=== PATIENT | male | born 1970 | race Caucasian/White ===

== ENCOUNTER 2016-10-22 05:17 | Inpatient (IN) | payer MEDICAID ==
[~2016-10-22] VITALS: Ht 182.9 cm; Wt 73.9 kg
[2016-10-22] VITALS (10 sets, daily range): BP systolic 117–142; BP diastolic 78–98; BMI 22.1
[~2016-10-22 05:17] MED LIST: AMOX-CLAV; FLAGYL500 MG PO; HYDROCODON-ACE1 EAC7 PO; IMODIUM2 MG PO; KEFLEX500 MG PO; OXYCODONE HCL5 MG PO; PROTONIX40 MG PO
--- NOTE | 2016-10-22 13:35 | NUR ---
RECEIVED TO ROOM 2238 FROM RECOVERY AT THIS TIME. INCISION X7 WITH BANDAGES C/D/I. ALERT AND ORIENTED. SCD'S ON AND IN WORKING ORDER. IV PATENT. LEA PATENT AND DRAINING TO GRAVITY. ASSESSMENT PERFORMED AND VITAL SIGNS INITIATED PER POST PROCEDURE PROTOCOL. CALL LIGHT IN REACH, BED ALARM ON. SR X2 AND BED IN LOWEST POSITION AND LOCKED. WILL CONTINUE WITH PLAN OF CARE.
--- NOTE | 2016-10-22 14:20 | NUR ---
DILAUDID TOW MOTOR OPERATOR INITIATED AT THIS TIME MORPHINE TOW MOTOR OPERATOR CAUSED PT TO ITCH. INCENTIVE SPIROMETER IN USE WITH 3,500 ML OF INSPIRATORY VOLUME. LEA CATHETER CARE PROVIDED WITH CATHETER CARE WIPES. VITAL SIGNS REMAIN STABLE. IV TO RIGHT HAND PATENT. MOTHER AT BEDSIDE. SCD'S ON AND IN WORKING ORDER. WILL CONTINUE WITH PLAN OF CARE.
--- NOTE | 2016-10-22 16:15 | NUR ---
DRESSING TO RLQ AND LLQ OF ABDOMEN MINIMALLY BLOODY. REINFORCED BOTH SITED WITH GAUZE AND METIPORE TAPE. LOOPING MACHINE OPERATOR IN USE FOR PAIN. PAIN RATED 6/10 INCISIONALLY AT THIS TIME. LEA PATENT AND DRAINING TO GRAVITY. PT SELF POSITIONS FOR COMFORT AND IS TOLERATING ICE CHIPS WITHOUT NAUSEA OR VOMITING. VITAL SIGNS REMAIN STABLE. INCENTIVE SPIROMETER IN USE. CALL LIGHT IN REACH, WILL CONTINUE WITH PLAN OF CARE.
--- NOTE | 2016-10-22 19:00 | NUR ---
BEDSIDE REPORT RECEIVED AND CARE OF PT ASSUMED. PT LYING IN SUPINE POSITION WATCHING TV. IV IN RIGHT HAND PATENT WITH D5 1/2 HS INFUSING AT 125 ML / HR. CASINO FLOORPERSON / DILAUDID IN USE FOR PAIN CONTROL. LEA CATHETER DRAINING TO GRAVITY WITH YELLOW URINE IN COLLECTION BAG. X7 DRESSINGS INTACT. ONE ON RIGHT SIDE WITH 3 INCH DAMIÁN DRAINAGE STAIN MARKED WITH MARKER TO GUAGE IF STILL DRAINING. WILL MONITOR CLOSELY FOR NEEDS.
--- NOTE | 2016-10-22 21:14 | NUR ---
HS MEDICATIONS GIVEN. WILL CONTINUE TO MONITOR FOR NEEDS.
--- NOTE | 2016-10-22 22:21 | NUR ---
PT STATES HE IS STARTING TO PASS GAS. REQUESTED A BEDPAN IN CASE IT FEELS LIKE MORE THAT GAS COMING.
--- NOTE | 2016-10-22 22:36 | OP ---
PATIENT NAME: AL AGRAWAL MEDICAL RECORD: [id number] :66 LOCATION:[id number] ADMISSION DATE:10/22/16 SURGEON: GAIL BARRAGAN MD DATE OF OPERATION: 10/22/2016 SURGEON: Gail Barragan MD PREOPERATIVE DIAGNOSES: 1. History of perforated diverticulitis with colo-enterovesical fistula. 2. History of Lux's procedure. POSTOPERATIVE DIAGNOSES: 1. History of perforated diverticulitis with colo-enterovesical fistula. 2. History of Lux's procedure. PROCEDURE PERFORMED: Laparoscopic lysis of adhesions, laparoscopic mobilization of splenic flexure, laparoscopic reversal of Lux's with 28 EEA stapler. ANESTHESIA: General. COMPLICATIONS: None. SPECIMENS: Colostomy and anastomotic donuts. Case was clean contaminated. ESTIMATED BLOOD LOSS: 75 cc. OPERATIVE COURSE: After consent was obtained, the patient was taken to the operating room and placed in the supine position on the operating table. Next, general anesthesia was given via endotracheal intubation after a timeout was performed to confirm the correct patient and procedure. Next, the abdomen was prepped and draped in typical sterile fashion. A trocar was inserted. Local anesthetic was injected into the right upper quadrant. Local anesthetic was administered. Skin incision was made with 11-blade scalpel. Using a 5-mm bladeless optical trocar, the abdomen was entered under direct laparoscopic vision. Adequate pneumoperitoneum was achieved. There was a dense amount of intra-abdominal adhesions from prior ex-lap and colostomy. Second and third trocars were placed, two 5-mm trocars in the left lateral and left upper quadrants. Laparoscopic lysis of adhesions was performed, which took approximately 30% to 40% of case time. Once all adhesions were taken down, the left lower quadrant colostomy was mobilized from the peritoneal surface. Once this was complete, the laparoscopic instruments were removed. A small low midline incision was made and Dave retractor was placed. Lysis of adhesions was performed on the small bowel and the small bowel was freed from the pelvis. The previous Prolene suture in the rectum was identified. This was used to dissect the rectum. Avascular and posterior plane was taken below the sacral promontory. At this time, the 28th anvil was placed into the colostomy. The skin around the colostomy was excised using electrocautery. Dissection continued to the level of the external fascia using sharp dissection and Harmonic dissection. Once the prior colostomy was freed from the external oblique fascia, the colon was extracorporealized. The anvil was advanced into the descending colon. A GI stapler was used to transect the distal 3-4 cm of the colostomy. A colotomy was made. The anvil was passed through the colotomy at the staple line and the colon was placed into the abdomen. The colostomy OPERATIVE REPORT [id number] AL AGRAWAL incision was closed with a #1 PDS. At this time, the EEA sizers were placed into the rectum. It was serially dilated. The rectum was fully mobilized. The 28 EEA stapler was then passed into the rectum and the spike was deployed. The anvil was attached to the spike and the EEA stapler was closed. The stapling device was fired and then removed. There were 2 intact donuts that were sent for permanent pathology. The staple line was oversewn with a 2-0 Stratafix suture. A bowel clamp was placed in the descending colon and the pelvis was filled with fluid, air was insufflated into the rectum. There was no evidence of leak. At this time, all irrigation was removed from the abdomen. Tisseel was used to reinforce the anastomosis. Bowel clamp was removed. Next, the low midline incision was closed with a #1 looped PDS. The abdomen was reinsufflated. The abdominal cavity was inspected. There was no evidence of bowel injury. No evidence of bleeding, no evidence of bile leak. No succuss noted. Again, the abdomen was irrigated and suctioned. At this time, all remaining instruments were removed. The abdomen was desufflated. Trocars were removed. Skin was closed with mark. At the end of the case, all needle and instrument counts were correct. No complications occurred. The patient was extubated and transferred to the PACU in stable condition. TRANSINT:[id number] Voice Confirmation ID: [id number] DOCUMENT ID: [id number] GAIL BARRAGAN MD at 2236 CC: [id number] DICTATION DATE: 10/22/16 1300 FORENSIC DOCUMENT EXAMINER: 10/22/16 1332 ADM IN [place] [id number] [place], [place] [id number]
[2016-10-23] VITALS: BP 132/85
--- NOTE | 2016-10-23 02:44 | NUR ---
DRESSINGS ON ABDOMINAL INCISIONS CHANGED. OLD DRESSINGS SOAKED WITH BLOODY DRAINAGE. RIGHT ABDOMINAL INCISIONS APPROXIMATED WITH RENETTA. LEFT SIDE ABDOMINAL INCISION APPROXIMATED WITH RENETTA EXCEPT FOR A 3 CM OPENING IN THE MIDDLE OF INCISION.
[2016-10-23 04:00] VITALS: BP 120/78
[2016-10-23 05:49] LABS: BASOPHILS 0.1 % (0.0-2.0); EOSINOPHILS 0 % (0-7); HEMATOCRIT 35.6 % (42.0-54.0); IMMATURE GRANULOCYTES 0.5 % (0-5); LYMPHOCYTES 8.1 % (15-50); MCH 29.3 pg (26.0-34.0); MCHC 33.7 g/dL (31.0-37.0); MCV 86.8 fL (80.0-100.0); MEAN PLATELET VOLUME 9.1 fL (7.4-10.4); MONOCYTES 6.9 % (2-11); NEUTROPHILS 84.4 % (40-80); RDW 13.8 % (11.5-14.5); WBC 13.6 10x3/uL (4.8-10.8)
[2016-10-23 06:09] LABS: CALC OSMOLALITY 276 mosm/kg (275-300); CALCIUM 8.4 mg/dL (8.5-10.1); CARBON DIOXIDE 22.9 mmol/L (21.0-32.0); CHLORIDE - SERUM 103 mmol/L (98-107); GLUCOSE 135 mg/dL (74-106); MAGNESIUM - SERUM 1.5 mg/dL (1.8-2.4); POTASSIUM - SERUM 3.8 mmol/L (3.5-5.1); SODIUM 138 mmol/L (136-145); UREA NITROGEN 11 mg/dL (7-18); eGFR NON AFRICAN AMERICAN 85 mL/min (90-120)
[2016-10-23 06:21] LABS: PLATELET COUNT 182 10x3/uL (130-400)
--- NOTE | 2016-10-23 07:03 | NUR ---
MAG 1.5 THIS AM. GIVING 1 GM MAG IVPB X2 PER ELECTROLYTE PROTOCOL.
--- NOTE | 2016-10-23 08:00 | NUR ---
PATIENT IN HIGH FOWLERS POSITION WITH EYES OPENED. ASSESSMENT COMPLETED AT THIS TIME. NO NEEDS VOICED.
[2016-10-23 08:35] VITALS: BP 125/77
--- NOTE | 2016-10-23 09:23 | NUR ---
16FR LEA WITH 8CC BULB DISCONTINUED WITH TIP INTACT PER ORDERS. PATIENT TOLERATED WELL.
--- NOTE | 2016-10-23 11:40 | NUR ---
Patient Name: AL AGRAWAL Admission Status: Elective Accout number: [id number] Admission Date: 10-22-2016 : 1970 Admission Diagnosis: Attending: GIOVANI Current LOS: 1 Anticipated DC Date: 10-28-2016 Planned Disposition: Home with Home Health Primary Insurance: [place] [employer] Discharge Planning Comments: CM MET WITH PATIENT AND MOTHER (GIANCARLO) REGARDING D/C NEEDS AND PLANS. PATIENT STATED HE LIVES WITH HIS MOTHER AND SHE WILL DRIVE HIM HOME AT DISCHARGE. PATIENT STATED THERE ARE NO STEPS OR STAIRS AT HIS HOME. PATIENT IS INDEPENDENT WITH HIS CARE AND HAS NO DME AT HOME. PATIENTS PCP IS DR. SIGALA AND PHARMACY IS [facility] [address]. PATIENT HAD [employer] IN THE PAST AND SIGNED THE SHAZIA FORM WITH [employer] AGAIN. CM WILL CONTINUE TO FOLLOW PATIENT WITH D/C NEEDS AND PLANS. PCP DR. ZAKIYA HOFFMAN ON [facility] [phone] GIANCARLO [place] [place] [phone] [facility] [phone] Switchboard Operator Supervisor: Corin Carrion Is the patient Alert and Oriented? Yes 0 * How many steps to enter\exit or inside your home? 0 0 * PCP DR. SIGALA 0 * Pharmacy [facility] [address] 0 * Preadmission Environment Home with Family 0 * ADLs Independent 0 * Equipment None 0 * List name and contact numbers for known caregivers / representatives who currently or will assist patient after discharge: [facility] [place] [phone] * Community resources currently utilized None 0 * Additional services required to return to the preadmission environment? Yes 0 * Can the patient safely return to the preadmission environment? Yes 0 * Has this patient been hospitalized within the prior 30 days at any hospital? No 0 Grand Total: 0
[2016-10-23 12:45] VITALS: Ht 182.9 cm; Wt 73.9 kg
[2016-10-23 12:48] VITALS: BP 124/81
[2016-10-23 16:37] VITALS: BP 135/86
[2016-10-23 22:41] VITALS: BP 130/86
[2016-10-24] VITALS: BP 136/91
[2016-10-24 05:41] LABS: BASOPHILS 0.1 % (0.0-2.0); EOSINOPHILS 0.8 % (0-7); HEMATOCRIT 32.2 % (42.0-54.0); HEMOGLOBIN 10.7 g/dL (13.5-17.5); IMMATURE GRANULOCYTES 0.5 % (0-5); LYMPHOCYTES 15.8 % (15-50); MCH 29.5 pg (26.0-34.0); MCHC 33.2 g/dL (31.0-37.0); MCV 88.7 fL (80.0-100.0); MEAN PLATELET VOLUME 9.3 fL (7.4-10.4); MONOCYTES 8.5 % (2-11); NEUTROPHILS 74.3 % (40-80); PLATELET COUNT 159 10x3/uL (130-400); RBC 3.63 10x6/uL (4.20-6.10); RDW 13.9 % (11.5-14.5)
[2016-10-24 05:56] LABS: WBC 9.5 10x3/uL (4.8-10.8)
[2016-10-24 06:03] LABS: CALCIUM 8.6 mg/dL (8.5-10.1); CHLORIDE - SERUM 104 mmol/L (98-107); GLUCOSE 119 mg/dL (74-106); MAGNESIUM - SERUM 1.7 mg/dL (1.8-2.4); SODIUM 140 mmol/L (136-145)
[2016-10-24 06:07] VITALS: BP 126/63
[2016-10-24 06:08] LABS: CALC OSMOLALITY 276 mosm/kg (275-300); CREATININE - SERUM 0.7 mg/dL (0.6-1.3); POTASSIUM - SERUM 3.2 mmol/L (3.5-5.1); UREA NITROGEN 4 mg/dL (7-18); eGFR NON AFRICAN AMERICAN > 90 mL/min (90-120)
--- NOTE | 2016-10-24 07:30 | NUR ---
SCHEDULED MEDICATIONS ADMINISTERED AT THIS TIME. ASSESSMENT PERFORMED PER FLOWSHEET. PT CONCERNED THAT HIS ABDOMEN IS DISTENDED AND HIS PENIS IS BLUEISH/BLACK IN COLOR. EXPLAINED TO PT THAT DISTENTION IS PARTIALLY NORMAL POST THIS TYPE OF PROCEDURE AND THAT ONCE BOWEL FUNCTION FULLY RETURNS HE WILL SEE IMPROVEMENT. EXPLAINED THAT THE DISCOLORATION OF HIS PENIS WAS D/T POOLING OF BLOOD, THUS CAUSING BRUISING. PT VERBALIZED UNDERSTANDING. UP IN CHAIR INDEPENDENTLY. INCENTIVE SPIROMETER IN USE. DENIES FURTHER NEEDS. CALL LIGHT IN REACH, WILL CONTINUE WITH PLAN OF CARE.
[2016-10-24 08:31] VITALS: BP 136/91
--- NOTE | 2016-10-24 09:43 | NUR ---
SCHEDULED MEDICATIONS ADMINISTERED AT THIS TIME. PT REMAINS UP IN CHAIR. CALL LIGHT IN REACH, WILL CONTINUE WITH PLAN OF CARE.
[2016-10-24 11:36] VITALS: BP 140/94
--- NOTE | 2016-10-24 13:35 | NUR ---
ELECTROLYTE PROTOCOL INTIAITED FOR POTASSIUM OF 3.2. IV TO RIGHT WRIST PATENT, DRESSING CHANGED. PT DENIES NEEDS. HOT FRAME TENDER IN USE FOR PAIN CONTROL. CALL LIGHT IN REACH, WILL CONTINUE WITH PLAN OF CARE.
[2016-10-24 15:30] VITALS: BP 135/93
--- NOTE | 2016-10-24 16:25 | NUR ---
DRESSINGS TO ABDOMEN CHANGED AT THIS TIME. INCISIONS WELL APROXIMATED WITH RENETTA INTACT. LEFT ABOMINAL INSION WITH A 1/2 INCH GAP WITH NO RENETTA PRESENT. PT TOLERATED WITH MINIMAL COMPLAINTS OF PAIN. CALL LIGHT IN REACH, WILL CONTINUE WITH PLAN OF CARE.
--- NOTE | 2016-10-24 18:26 | NUR ---
AMBULATED AROUND BOTH UNITS NURSES STATIONS X2 INDEPENDENTLY.
--- NOTE | 2016-10-24 19:59 | NUR ---
PT RESTING IN BED WATCHING TV. PT IS A&OX4. PT DENIES NEEDS AT THIS TIME. BED LOW. CL IN REACH.
[2016-10-24 20:20] VITALS: BP 146/99
[2016-10-25 00:36] VITALS: BP 143/95
[2016-10-25 04:34] VITALS: BP 153/101
[2016-10-25 05:48] LABS: BASOPHILS 0.3 % (0.0-2.0); EOSINOPHILS 1.8 % (0-7); HEMATOCRIT 32.1 % (42.0-54.0); HEMOGLOBIN 10.8 g/dL (13.5-17.5); IMMATURE GRANULOCYTES 0.4 % (0-5); MCH 29.9 pg (26.0-34.0); MCHC 33.6 g/dL (31.0-37.0); MCV 88.9 fL (80.0-100.0); MEAN PLATELET VOLUME 9.4 fL (7.4-10.4); MONOCYTES 8.3 % (2-11); NEUTROPHILS 76.2 % (40-80); PLATELET COUNT 166 10x3/uL (130-400); RBC 3.61 10x6/uL (4.20-6.10); RDW 13.7 % (11.5-14.5); WBC 7.4 10x3/uL (4.8-10.8)
[2016-10-25 06:10] LABS: CALC OSMOLALITY 273 mosm/kg (275-300); CALCIUM 8.9 mg/dL (8.5-10.1); CARBON DIOXIDE 29.1 mmol/L (21.0-32.0); CHLORIDE - SERUM 103 mmol/L (98-107); CREATININE - SERUM 0.7 mg/dL (0.6-1.3); GLUCOSE 109 mg/dL (74-106); MAGNESIUM - SERUM 1.8 mg/dL (1.8-2.4); POTASSIUM - SERUM 3.4 mmol/L (3.5-5.1); SODIUM 138 mmol/L (136-145); UREA NITROGEN 3 mg/dL (7-18); eGFR NON AFRICAN AMERICAN > 90 mL/min (90-120)
--- NOTE | 2016-10-25 07:20 | NUR ---
LYING SUPINE WITH RESPIRATIONS EVEN AND ON LABORED. CALL LIGHT IN REACH, WILL CONTINUE WITH PLAN OF CARE.
--- NOTE | 2016-10-25 09:10 | NUR ---
SCHEDULED MEDICATIONS ADMINISTERED AT THIS TIME. TAKEN WITHOUT DIFFICULTY. ASSESSMENT PERFORMED PER FLOWSHEET. CALL LIGHT IN REACH, WILL CONTINUE WITH PLAN OF CARE.
[2016-10-25 09:30] VITALS: BP 160/99
--- NOTE | 2016-10-25 11:21 | NUR ---
4TH AND FINAL BAG OF KCL SCANNED AND HUNG AT THIS TIME. DRESSING TO OLD OSTOMY SITES CHANGED PER ORDER AT THIS TIME. PT'S MOTHER AT BEDSIDE. IV TO LEFT FOREARM PATENT. DENIES NEEDS AT THIS TIME. CALL LIGHT IN REACH, WILL CONTINUE WITH PLAN OF CARE.
[2016-10-25 12:42] VITALS: BP 132/92
--- NOTE | 2016-10-25 13:49 | NUR ---
SCHEDULED MEDICATIONS ADMINISTERED AT THIS TIME. PT REMAINS UP IN CHAIR. MOTHER AT BEDSIDE. SCHOOL SUPERVISOR IN USE FOR PAIN CONTROL. CALL LIGHT IN REACH, WILL CONTINUE WITH PLAN OF CARE.
--- NOTE | 2016-10-25 15:28 | NUR ---
AMBULATING IN HALLWAY AT THIS TIME. POTASSIUM RE-DRAW 3.8, SO NO FURTHER POTASSIUM NEEDED TODAY. PT AMBULATING AROUND HALLWAY INDEPENDENTLY AT THIS TIME WITHOUT DIFFICULTY. DENIES NEEDS AT THIS TIME. WILL CONTINUE WITH PLAN OF CARE.
--- NOTE | 2016-10-25 16:17 | NUR ---
CALLED TO PT'S ROOM BY PT AT THIS TIME. PT SAID HE WAS FEELING DISTENDED AND WANTED TO VOMIT. HE BEGAN TO FEEL NAUSEOUS AND VOMITED GREEN, CLEAR FLUID IN TRASH CAN (ROUGHLY 35ML). HE WANTED TO THROW UP MORE SO HE "SLAMMED" THE ENTIRE CONTENTS OF HIS 12 OUNCE WATER, SO HE COULD VOMIT AGAIN. PT VOMITED AGAIN THIS TIME IN THE COMMODE. ONCE AGAIN IT WAS GREEN AND CLEAR (ROUGHLY 30-40ML).
[2016-10-25 17:22] VITALS: BP 146/102
[2016-10-25 20:00] VITALS: BP 130/94
[2016-10-26] VITALS: BP 143/95
--- NOTE | 2016-10-26 02:15 | NUR ---
PATIENT SLEEPING IN SEMI-FOWLERS POSTION. NO VISUAL SIGNS OF DISTRESS.
[2016-10-26 04:00] VITALS: BP 126/87
[2016-10-26 06:24] LABS: BASOPHILS 0.2 % (0.0-2.0); EOSINOPHILS 1.4 % (0-7); HEMATOCRIT 32.6 % (42.0-54.0); HEMOGLOBIN 10.9 g/dL (13.5-17.5); IMMATURE GRANULOCYTES 0.9 % (0-5); LYMPHOCYTES 18.8 % (15-50); MCH 29.7 pg (26.0-34.0); MCHC 33.4 g/dL (31.0-37.0); MCV 88.8 fL (80.0-100.0); MEAN PLATELET VOLUME 8.9 fL (7.4-10.4); MONOCYTES 11.4 % (2-11); NEUTROPHILS 67.3 % (40-80); PLATELET COUNT 190 10x3/uL (130-400); RBC 3.67 10x6/uL (4.20-6.10); RDW 13.5 % (11.5-14.5)
[2016-10-26 06:27] LABS: WBC 4.4 10x3/uL (4.8-10.8)
[2016-10-26 06:42] LABS: CALC OSMOLALITY 269 mosm/kg (275-300); CALCIUM 8.3 mg/dL (8.5-10.1); CARBON DIOXIDE 28.8 mmol/L (21.0-32.0); CHLORIDE - SERUM 100 mmol/L (98-107); CREATININE - SERUM 0.7 mg/dL (0.6-1.3); GLUCOSE 111 mg/dL (74-106); SODIUM 136 mmol/L (136-145); UREA NITROGEN 3 mg/dL (7-18); eGFR NON AFRICAN AMERICAN > 90 mL/min (90-120)
--- NOTE | 2016-10-26 07:30 | NUR ---
AWAKE AND ALERT. ORIENTED X3. LUNGS ARE CLEAR BILATERALLY, NO COUGH NOTED. SKIN IS INTACT WITHOUT REDNESS EXCEPT 2 INCISION SITES TO ABDOMEN WITH DRY INTACT DRESSINGS IN PLACE.THERE ARE 4 SITES 2 ON EACH SIDE OF ABDOMEN WITH A CLIP OVER EACH SMALL INCISION. IV TO LEFT FOREARM IS PATENT WITHOUT REDNESS AT INSERTION SITE. DENIES NEEDS. BOWEL SOUNDS ARE HYPOACTIVE UPON AUSULATION.
[2016-10-26 08:25] VITALS: BP 136/92
--- NOTE | 2016-10-26 08:30 | NUR ---
ATE ONLY A SMALL PORTION OF BREAKFAST. UP TO BR PER SELF WITH LOOSE WATERY STOOL. SKIN CARE PER SELF. DR REN HERE. NEW ORDERS RECEIVED.
--- NOTE | 2016-10-26 11:45 | NUR ---
STOOL SPECIMEN SENT TO LAB FOR TEST.
[2016-10-26 12:48] VITALS: BP 118/73
--- NOTE | 2016-10-26 13:45 | NUR ---
UPSET ABOUT NO DIET CHANGE. ADVANCED TO FULL LIQUID AT THIS TIME. WILL MONITOR. AMBULATED IN HALLWAY PER SELF. NO C/O AT THIS TIME. DENIES NEEDS.
[2016-10-26 16:24] VITALS: BP 140/94
[2016-10-26 19:00] VITALS: BP 148/89
--- NOTE | 2016-10-26 19:00 | NUR ---
REC'D IN BED AWAKE AND ALERT. RESP EVEN AND UNLABORED WITH NO DISTRESS NOTED. CAN EXPRESS NEEDS AND WANTS. TURN AND REPOSITION SELF AB BETO. ASSESSMENT COMPLETED. C/L IN REACH AT BEDSIDE.
--- NOTE | 2016-10-26 19:35 | NUR ---
NO CHANGES NOTED AT THIS TIME. ABLE TO KEEP FULL LIQUIDS DOWN WITHOUT NAUSEA.
[2016-10-27] VITALS: BP 137/92
[2016-10-27 04:00] VITALS: BP 121/79
--- NOTE | 2016-10-27 04:00 | NUR ---
PT IN BED WITH NO NEEDS. LEFT FOREARM IV PATENT AND FLUIDS RUNNING PER ORDER. ABDOMINAL INCISION C/D/I AND CLIPS X 2 NOTED. BOWEL SOUNDS ACTIVE ALL QUADS. DILAUDID DIRECTOR OF PHYSICIAN PRACTICES IN PLACE FOR PAIN CONTROL. SIDE RAILS ARE UP X 2. BED IS LOW. CALL LIGHT IS IN REACH.
--- NOTE | 2016-10-27 04:15 | NUR ---
CONTINUE TO REST WELL AT THIS TIME. C/L IN REACH AT BEDSIDE.
[2016-10-27 05:43] LABS: BASOPHILS 0.2 % (0.0-2.0); EOSINOPHILS 2.1 % (0-7); HEMATOCRIT 30.8 % (42.0-54.0); HEMOGLOBIN 10.2 g/dL (13.5-17.5); IMMATURE GRANULOCYTES 1.2 % (0-5); LYMPHOCYTES 26.5 % (15-50); MCH 29.6 pg (26.0-34.0); MCHC 33.1 g/dL (31.0-37.0); MCV 89.3 fL (80.0-100.0); MEAN PLATELET VOLUME 9.2 fL (7.4-10.4); MONOCYTES 15.8 % (2-11); NEUTROPHILS 54.2 % (40-80); PLATELET COUNT 219 10x3/uL (130-400); RBC 3.45 10x6/uL (4.20-6.10); RDW 13.4 % (11.5-14.5); WBC 4.3 10x3/uL (4.8-10.8)
[2016-10-27 06:27] LABS: CALC OSMOLALITY 273 mosm/kg (275-300); CALCIUM 8.1 mg/dL (8.5-10.1); CARBON DIOXIDE 28.8 mmol/L (21.0-32.0); CHLORIDE - SERUM 103 mmol/L (98-107); CREATININE - SERUM 0.7 mg/dL (0.6-1.3); GLUCOSE 112 mg/dL (74-106); MAGNESIUM - SERUM 1.8 mg/dL (1.8-2.4); SODIUM 138 mmol/L (136-145); UREA NITROGEN 3 mg/dL (7-18); eGFR NON AFRICAN AMERICAN > 90 mL/min (90-120)
[2016-10-27 06:33] LABS: POTASSIUM - SERUM 3.3 mmol/L (3.5-5.1)
--- NOTE | 2016-10-27 08:23 | NUR ---
AWAKE AND ALERT. ORIENTED X3. NO C/O AT THIS TIME. LUNGS ARE CLEAR BILATERALLY, NO COUGH NOTED. SKIN IS INTACT WITHOUT REDNESS EXCEPT 3 INCISIONS TO LOWER ABDOMEN WHICH ARE CLEAN AND DRY WITH CLIPS INTACT. THERE ARE 4 SMALL INSERTION SITES TO SIDES OF ABDOMEN FOR INSTRUMENT INSERTION WHICH ARE HEALING WITHOUT SIGNS OF INFECTION. IV CONVERTED TO SL ON LEFT FOREARM WHICH IS PATENT WITHOUT SIGNS OF INFECTION. DENIES NEEDS. REGULAR BREAKFAST TRAY SERVED AT THIS TIME.
[2016-10-27 08:47] VITALS: BP 130/77
--- NOTE | 2016-10-27 10:15 | NUR ---
AMBULATED IN HALLWAY PER SELF. NO C/O INCREASED PAIN WITH ACTIVITY. NO NAUSEA AFTER EATING A FULL BREAKFAST.
[2016-10-27 12:38] VITALS: BP 140/90
--- NOTE | 2016-10-27 12:46 | NUR ---
RESTING QUIETLY IN CHAIR IN ROOM. REPORTS ONE EPISODE OF DIARRHEA AFTER WALKING WITH SOME FORMED STOOL. WILL CONTINUE TO MONITOR. REQUESTED AND GIVEN ONE OXY IR PO FOR C/O ABDOMINAL PAIN LEVEL 5. WILL MONITOR.
[2016-10-27 16:48] VITALS: BP 146/98
--- NOTE | 2016-10-27 18:58 | NUR ---
HAD LARGE AMOUNT OF EMESIS WHEN EATING SUPPER. REQUESTED AND GIVEN 4MG ZOFRAN SLOW IVP FOR NAUSEA. WILL MONITOR.
[2016-10-27 19:00] VITALS: BP 144/99
--- NOTE | 2016-10-27 23:59 | NUR ---
RESTING WITH EYES CLOSED, RESP WITH EASE, NO DISTRESS NOTED, CL IN REACH
[2016-10-28] VITALS: BP 141/99
[2016-10-28 04:00] VITALS: BP 137/92
--- NOTE | 2016-10-28 04:32 | NUR ---
REC.D AT SHIFT CHGE/SITTING UP IN BED WATCHING TV.ABD. REMAINS DISTENDED BUT PALABLE QUIET ALL QUAD. DENIES NAUSEA AT PRESENT TIME.ENCOURAGED TO WALK TO HELP PASS GAS VOICES UNDERSTANDING. WILL CONTINUE TO MONITOR FOR ANY CHGES IN CHGES IN ABD,STATUS AND FOLLOW CURRENT PLAN OF CARE
--- NOTE | 2016-10-28 08:00 | NUR ---
PT AWAKE AND ALERT ORINETED X 3 LUNGS CLEAR BILATERAL NO ACUTE DISTRESS NOTED VOICES ALL NEEDS TO STAFF UP AD BETO AMBULATES IN ROOM ABDOMEN TENDER TO PALPATION. RENETTA NOTED TO 3 INCISIONS. DRESSING NOTED TO ABDOMEN. ENCOURAGED TO AMBULATE TO ASSIST IN PASSING GAS. WILL MONITOR.
[2016-10-28 08:31] VITALS: BP 152/101
--- NOTE | 2016-10-28 10:26 | NUR ---
PT AMBULATING IN GRIFFIN. ONLY COMPLAINTS IS SORENESS IN ABDOMEN. HOPING FOR DISCHARGE TODAY
[2016-10-28 12:59] VITALS: BP 143/78
--- NOTE | 2016-10-28 14:40 | NUR ---
NUTRITION MONITORING & EVAL CHART REVIEWED. PT VISIT. TOLERATING REG DIET, GOOD INTAKE. WILL CONTINUE TO HONOR FOOD PREFERERENCES, MONITOR PT PROGRESS. RD FOLLOWING
--- NOTE | 2016-10-28 15:52 | NUR ---
PT GIVEN PAIN MEDS PER ORDER NO ACUTE DISTRESS NTOED VOICES ALL NEEDS. CALL LIGHT AND WATER IN REACH SIDE RAILS UP X 2
[2016-10-28 16:29] VITALS: BP 131/93
[2016-10-28 19:00] VITALS: BP 130/87
--- NOTE | 2016-10-28 20:30 | NUR ---
ASSESSMENT COMPLETED, NO ACUTE DISTRESS NOTED, RENETTA INTACT TO ABD, DENIES NEEDS, CL IN REACH
--- NOTE | 2016-10-28 21:27 | NUR ---
FLUIDS HUNG PER MAR, KRISTEN WELL, CL IN REACH
--- NOTE | 2016-10-29 02:20 | NUR ---
IV AB'S HUNG PER MAR, KRISTEN WELL, DENIES NEEDS, CL IN REACH
[2016-10-29 04:00] VITALS: BP 128/86
--- NOTE | 2016-10-29 05:13 | NUR ---
RESTING WITH EYES CLOSED, RESP WITH EASE, NO DISTRESS NOTED, CL IN REACH
[2016-10-29] MEDS ORDERED: MIRALAX17 GM PO (08:11)
[2016-10-29] MEDS ORDERED: LEVAQUIN500 MG PO (08:11)
[2016-10-29] MEDS ORDERED: HYDROCODONE-APA1 TAB PO (08:11)
[2016-10-29 08:33] VITALS: BP 133/89
[2016-10-29 08:45] LABS: BASOPHILS 0.4 % (0.0-2.0); HEMATOCRIT 35.9 % (42.0-54.0); HEMOGLOBIN 11.9 g/dL (13.5-17.5); IMMATURE GRANULOCYTES 5.3 % (0-5); MCH 29.7 pg (26.0-34.0); MCHC 33.1 g/dL (31.0-37.0); MCV 89.5 fL (80.0-100.0); MEAN PLATELET VOLUME 8.9 fL (7.4-10.4); MONOCYTES 11.8 % (2-11); NEUTROPHILS 65.5 % (40-80); RBC 4.01 10x6/uL (4.20-6.10); RDW 13.2 % (11.5-14.5); WBC 8.3 10x3/uL (4.8-10.8)
[2016-10-29 08:54] LABS: PLATELET COUNT 319 10x3/uL (130-400)
--- NOTE | 2016-10-29 08:55 | NUR ---
CM REASSESSMENT NOTE: PATIENT IS DISCHARGING HOME THIS AFTERNOON. PATIENTS MOTHER TO DRIVE HIM HOME. PATIENT SIGNED THE SHAZIA WITH [employer] [facility] AND REFERRAL HAS BEEN SENT.
[2016-10-29 08:56] LABS: CALC OSMOLALITY 271 mosm/kg (275-300); CALCIUM 9.4 mg/dL (8.5-10.1); CARBON DIOXIDE 27.3 mmol/L (21.0-32.0); CHLORIDE - SERUM 100 mmol/L (98-107); CREATININE - SERUM 0.9 mg/dL (0.6-1.3); GLUCOSE 140 mg/dL (74-106); MAGNESIUM - SERUM 1.9 mg/dL (1.8-2.4); POTASSIUM - SERUM 4.3 mmol/L (3.5-5.1); SODIUM 136 mmol/L (136-145); UREA NITROGEN 6 mg/dL (7-18); eGFR NON AFRICAN AMERICAN > 90 mL/min (90-120)
--- NOTE | 2016-10-29 10:54 | NUR ---
WOUND CARE CONSULT: PT HAS ABDOMINAL INCISIONS WITH CLAMPS INTACT. HE IS S/P COLOSTOMY REVERSAL BY DR. BARRAGAN. INCISIONS WITHOUT REDNESS, EDEMA, HEAT OR ODOR. PT IS AMBULATING IN [place]RIFF[place]. WILL MONITOR NEEDED.
[2016-10-29 11:55] VITALS: BP 117/83
--- NOTE | 2016-10-29 13:44 | NUR ---
CHANGED DRESSING TO LLQ OF ABD. CLEANED WITH STERILE WATER AND PATTED DRY WITH 4X4 STERILE GAUZE. APPLIED A BORDERED GAUZE. D/C IV WITH CATH INTACT. DISCHARGE INSTRUCTIONS COMPLETED WITH PATIENT. PATIENT DENIES QUESTIONS.
== END 2016-10-29 15:06 | disposition home health service (06) | DRG 336 ==
LOC: D.SDCHOLD 05:17 → D.MS 05:17 → D.SDCHOLD 09:30 → D.MS 13:26
PROVIDERS: ADMIT Surgery
PROC: 0DSL4ZZ Reposition Transverse Colon, Percutaneous Endoscopic Approach (ICD-10-PCS; 2016-10-22)
PROC: 0DS Gastrointestinal System, Reposition (ICD-10-PCS; principal; 2016-10-22 09:30)
PROC: 0DN84ZZ Release Small Intestine, Percutaneous Endoscopic Approach (ICD-10-PCS; 2016-10-22 09:30)
DX: Z43.3 Encounter for attention to colostomy (principal); N32.1 Vesicointestinal fistula; R11.10 Vomiting, unspecified; R19.7 Diarrhea, unspecified; K66.0 Peritoneal adhesions (postprocedural) (postinfection)

== ENCOUNTER 2016-11-12 15:00 | Emergency (ER) | payer MEDICAID ==
[2016-10-23 12:45] VITALS: BMI 22.1
[~2016-11-12 15:00] MED LIST changes: +HYDROCODONE-APA1 TAB PO; +LEVAQUIN500 MG PO; +MIRALAX17 GM PO
== END 2016-11-12 21:12 | disposition home or self-care (01) ==
LOC: D.ER 15:00
DX: S61.412A Laceration without foreign body of left hand, initial encounter (principal); W26.0XXA Contact with knife, initial encounter; Y93.89 Activity, other specified; Y92.019 Unspecified place in single-family (private) house as the place of occurrence of the external cause

== ENCOUNTER 2019-01-18 18:14 | Emergency (ER) | payer MEDICAID ==
[~2019-01-18] VITALS: Ht 182.9 cm; Wt 68.2 kg
[2019-01-18 18:25] VITALS: BP 149/97; Ht 182.9 cm; Wt 68.2 kg
[2019-01-18] MEDS ORDERED: BYSTOLIC5 MG PO (18:28)
[2019-01-18 18:47] LABS: BASOPHILS 0.3 % (0-2); HEMATOCRIT 42.7 % (42.0-54.0); IMMATURE GRANULOCYTES 1.5 % (0-5); LYMPHOCYTES 22.8 % (15-50); MCH 31.4 pg (26.0-34.0); MCHC 35.1 g/dL (31.0-37.0); MCV 89.3 fL (80.0-100.0); MEAN PLATELET VOLUME 9.2 fL (7.4-10.4); MONOCYTES 6.8 % (2-11); NEUTROPHILS 67.6 % (40-80); RBC 4.78 10x6/uL (4.20-6.10); RDW 13.1 % (11.5-14.5); WBC 15.6 10x3/uL (4.8-10.8)
[2019-01-18 18:48] LABS: PLATELET COUNT 249 10x3/uL (130-400)
[2019-01-18 19:06] LABS: ALKALINE PHOSPHATASE 59 U/L (46-116); ALT (SGPT) 63 U/L (10-68); BILIRUBIN - TOTAL 0.58 mg/dL (0.2-1.3); CALC OSMOLALITY 273 mosm/kg (275-300); CALCIUM 8.7 mg/dL (8.5-10.1); CARBON DIOXIDE 18.9 mmol/L (21.0-32.0); CHLORIDE - SERUM 101 mmol/L (98-107); CREATININE - SERUM 1.3 mg/dL (0.6-1.3); GLUCOSE 134 mg/dL (74-106); POTASSIUM - SERUM 3.7 mmol/L (3.5-5.1); PROTEIN - SERUM 7.9 g/dL (6.4-8.2); SODIUM 135 mmol/L (136-145); UREA NITROGEN 19 mg/dL (7-18); eGFR NON AFRICAN AMERICAN 62 mL/min (90-120)
[2019-01-18 19:11] LABS: AMYLASE - SERUM 57 U/L (25-115); LIPASE 102 U/L (73-393); TROPONIN-I < 0.017 ng/mL (0.000-0.060)
== END 2019-01-18 21:33 | disposition home or self-care (01) ==
LOC: D.ER 18:14
PROVIDERS: Family Medicine
DX: R10.9 Unspecified abdominal pain (principal)